=== PATIENT | male | born 1945 | race Caucasian/White ===

== ENCOUNTER → 2019-01-01 12:27 | Outpatient (CLI) | payer MEDICARE, OTHER, SELFPAY ==
[2019-01-01 13:06] LABS: Add Manual Diff / Slide Review NO; Basophils Absolute Auto 0 /uL (0-100); Basophils Percent Auto 0.5 % (0-2); Eosinophils Absolute Auto 100 /uL (0-450); Eosinophils Percent Auto 1.4 % (2-4); Hematocrit 42.3 % (41-53); Hemoglobin 14.5 g/dL (13.5-17.5); Lymphocytes Absolute Auto 1300 /uL (1100-4500); Lymphocytes Percent Auto 29.7 % (25-40); Mean Corpuscular HGB Conc 34.3 % (30-36); Mean Corpuscular Hemoglobin 30.1 PG (26-34); Mean Corpuscular Volume 87.8 fL (80-100); Monocytes Absolute Auto 300 /uL (0-900); Neutrophils Absolute Auto 2800 /uL (1500-7000); Neutrophils Percent Auto 62.4 % (50-75); Platelet Count 187 X10^3/uL (150-400); Red Blood Cell Count 4.82 X10^6/uL (4.5-5.9); Red Cell Distribution Width 14.2 % (11.6-14.8); White Blood Cell Count 4.5 X10^3/uL (4.5-11.0)
[2019-01-01 13:51] LABS: Alanine Aminotransferase 26 IU/L (21-72); Albumin 4.5 g/dL (3.5-5.0); Albumin Globulin Ratio 1.6 (1.0-2.8); Alkaline Phosphatase 49 U/L (38-126); Aspartate Aminotransferase 17 IU/L (17-59); BUN Creatinine Ratio 22.9 (6-22); Bilirubin Total 1.1 mg/dL (0.2-1.3); Blood Urea Nitrogen 16 mg/dL (9-20); Calcium 9.6 mg/dL (8.4-10.2); Carbon Dioxide 27 mmol/L (22-32); Chloride 104 mmol/L (98-107); Cholesterol 194 mg/dL (140-199); Estimated Glomerular Filt Rate > 60.0 mL/min (>60); Globulin 2.8 g/dL (1.7-4.1); Glucose 89 mg/dL (80-110); HDL Cholesterol 69 mg/dL (40-60); HEMOLYSIS < 15 (0-50); LDL Cholesterol Calculated 99 mg/dL (<100); Potassium 4.9 mmol/L (3.4-5.1); Sodium 140 mmol/L (137-145); Total Protein 7.3 g/dL (6.3-8.2); Triglycerides 128 mg/dL (35-150)
[2019-01-01 14:20] LABS: Prostate Specific Antigen Scrn 4.71 ng/mL (0.1-4.0)
== END ==
PROVIDERS: Family Provider Family Medicine; PCP Family Medicine; Visit Provider Family Medicine
DX: Z00.00 Encounter for general adult medical examination without abnormal findings (principal); Z12.5 Encounter for screening for malignant neoplasm of prostate; Z13.6 Encounter for screening for cardiovascular disorders
CPT/HCPCS: 36415; 80053; 80061; 84443; 85025; G0103

== ENCOUNTER → 2019-01-07 11:05 | Outpatient (CLI) | payer MEDICARE, OTHER, SELFPAY ==
[2019-01-07 19:16] LABS: Hep C Virus Ab w/Reflex Quant NEGATIVE s/c (NEGATIVE)
== END ==
PROVIDERS: PCP Family Medicine; Visit Provider Family Medicine
DX: Z11.59 Encounter for screening for other viral diseases (principal)
CPT/HCPCS: 36415; 86803

== ENCOUNTER → 2021-07-07 09:58 | Outpatient (CLI) | payer MEDICARE, SELFPAY ==
[2021-07-07 10:31] LABS: Add Manual Diff / Slide Review NO; Basophils Absolute Auto 0 /uL (0-100); Basophils Percent Auto 0.6 % (0-2); Eosinophils Absolute Auto 100 /uL (0-450); Eosinophils Percent Auto 2.1 % (2-4); Hematocrit 41.5 % (41-53); Hemoglobin 14.3 g/dL (13.5-17.5); Lymphocytes Absolute Auto 1800 /uL (1100-4500); Lymphocytes Percent Auto 34.1 % (25-40); Mean Corpuscular HGB Conc 34.4 % (30-36); Mean Corpuscular Hemoglobin 29.8 PG (26-34); Mean Corpuscular Volume 86.7 fL (80-100); Monocytes Absolute Auto 400 /uL (0-900); Monocytes Percent Auto 6.8 % (3-14); Neutrophils Absolute Auto 3000 /uL (1500-7000); Neutrophils Percent Auto 56.4 % (50-75); Platelet Count 187 X10^3/uL (150-400); Red Blood Cell Count 4.78 X10^6/uL (4.5-5.9); Red Cell Distribution Width 14.2 % (11.6-14.8); White Blood Cell Count 5.3 X10^3/uL (4.5-11.0)
[2021-07-07 11:26] LABS: Alanine Aminotransferase 15 IU/L (<50); Albumin 4.3 g/dL (3.5-5.0); Albumin Globulin Ratio 1.7 (1.0-2.8); Alkaline Phosphatase 48 U/L (38-126); Aspartate Aminotransferase 18 IU/L (17-59); BUN Creatinine Ratio 19.7 (6-22); Bilirubin Total 1.1 mg/dL (0.2-1.3); Blood Urea Nitrogen 15 mg/dL (9-20); Calcium 9.8 mg/dL (8.4-10.2); Carbon Dioxide 25 mmol/L (22-32); Chloride 107 mmol/L (98-107); Cholesterol 215 mg/dL (140-199); Estimated Glomerular Filt Rate > 60.0 mL/min (>60); Globulin 2.5 g/dL (1.7-4.1); Glucose 98 mg/dL (80-110); HDL Cholesterol 72 mg/dL (40-60); HEMOLYSIS < 15 (0-50); LDL Cholesterol Calculated 125 mg/dL (<100); Potassium 4.5 mmol/L (3.4-5.1); Sodium 140 mmol/L (137-145); Total Protein 6.8 g/dL (6.3-8.2); Triglycerides 91 mg/dL (35-150)
[2021-07-07 11:56] LABS: TSH w/ Reflex to FT4 2.22 uIU/mL (0.47-4.68)
== END ==
PROVIDERS: PCP Family Medicine; Referring Provider Family Medicine; Visit Provider Family Medicine
DX: Z00.00 Encounter for general adult medical examination without abnormal findings (principal); Z13.220 Encounter for screening for lipoid disorders; Z13.6 Encounter for screening for cardiovascular disorders; Z12.5 Encounter for screening for malignant neoplasm of prostate
CPT/HCPCS: 36415; 80053; 80061; 84443; 85025; G0103

== ENCOUNTER → 2023-01-15 10:52 | Outpatient (CLI) | payer MEDICARE, SELFPAY ==
[2023-01-15 12:24] LABS: Add Manual Diff / Slide Review NO; Basophils Absolute Auto 0 /uL (0-100); Basophils Percent Auto 0.7 % (0-2); Eosinophils Absolute Auto 100 /uL (0-450); Eosinophils Percent Auto 1.8 % (2-4); Hematocrit 42.2 % (41-53); Hemoglobin 14.6 g/dL (13.5-17.5); Lymphocytes Absolute Auto 1800 /uL (1100-4500); Mean Corpuscular HGB Conc 34.6 % (30-36); Mean Corpuscular Volume 86.6 fL (80-100); Monocytes Absolute Auto 300 /uL (0-900); Monocytes Percent Auto 6.7 % (3-14); Neutrophils Absolute Auto 2800 /uL (1500-7000); Neutrophils Percent Auto 55.8 % (50-75); Platelet Count 193 X10^3/uL (150-400); Red Blood Cell Count 4.87 X10^6/uL (4.5-5.9); White Blood Cell Count 5.1 X10^3/uL (4.5-11.0)
[2023-01-15 13:03] LABS: Alanine Aminotransferase 20 IU/L (<50); Albumin 4.4 g/dL (3.5-5.0); Albumin Globulin Ratio 1.7 (1.0-2.8); Alkaline Phosphatase 58 U/L (38-126); Aspartate Aminotransferase 21 IU/L (17-59); BUN Creatinine Ratio 19.2 (6-22); Bilirubin Total 1.1 mg/dL (0.2-1.3); Blood Urea Nitrogen 15 mg/dL (9-20); Carbon Dioxide 25 mmol/L (22-32); Chloride 100 mmol/L (98-107); Cholesterol 205 mg/dL (140-199); Estimated Glomerular Filt Rate > 60 mL/min (>60); Globulin 2.6 g/dL (1.7-4.1); Glucose 86 mg/dL (80-110); HDL Cholesterol 70 mg/dL (40-60); HEMOLYSIS < 15 (0-50); LDL Cholesterol Calculated 117 mg/dL (<100); Potassium 4.5 mmol/L (3.4-5.1); Sodium 137 mmol/L (137-145); Triglycerides 90 mg/dL (35-150)
[2023-01-15 13:34] LABS: Prostate Specific Antigen Scrn 5.87 ng/mL (0.1-4.0)
[2023-01-15 13:41] LABS: TSH w/ Reflex to FT4 2.81 uIU/mL (0.47-4.68)
== END ==
PROVIDERS: PCP Family Medicine; Referring Provider Family Medicine; Visit Provider Family Medicine
DX: R97.20 Elevated prostate specific antigen [PSA] (principal); Z13.6 Encounter for screening for cardiovascular disorders; Z12.5 Encounter for screening for malignant neoplasm of prostate; Z13.220 Encounter for screening for lipoid disorders
CPT/HCPCS: 36415; 80053; 80061; 84443; 85025; G0103

== ENCOUNTER → 2023-02-14 12:20 | Outpatient (CLI) | payer MEDICARE, SELFPAY ==
--- NOTE | 2023-02-14 12:21 | DI.ECHO.S_ITS ---
[facility] +---------+ : : [address] : : : : [id number] : : : : Phone: [phone]+ Echocardiogram Report + + :Name: WU RUIZ Study Date: 02/14/2023 Height: 72 in : :[facility] ReadingLocation: Weight: 195 lb : : Gender: Male BSA: 2.1 m2 : :: 1945 Age: 77 yrs BP: 115/80 mmHg: :Reason For Study: TACHYCARDIA : :Ordering Physician: MAGEN, : :CHASITY Performed By: NITO FAY : :Referring: CHASITY US : + + Interpretation Summary The left ventricle is normal in size. Left ventricular systolic function is normal. The ejection fraction is estimated to be 50-55%. There are no obvious focal wall motion abnormalities noted but poor endocardial definition reduces the sensitivity for the detection of such. Probable normal LV filling pressures. The right ventricle is normal size. Right ventricular systolic function is mildly reduced. Right ventricular systolic pressure is at least 23 mmHg plus right atrial pressure. The left atrium is severely dilated. There is mild mitral regurgitation. There is no other significant valvular heart disease. The aortic root is normal size. Procedure: A two-dimensional transthoracic echocardiogram with color flow and Doppler was performed. The study quality was technically adequate. There is no prior echocardiogram noted for this patient. The patient was in sinus rhythm with heart rates between 46-119 bpm during the exam. Left Ventricle: The left ventricle is normal in size. There is normal left ventricular wall thickness. Left ventricular systolic function is normal. The ejection fraction is estimated to be 50-55%. There are no obvious focal wall motion abnormalities noted but poor endocardial definition reduces the sensitivity for the detection of such. Probable normal LV filling pressures. Right Ventricle: The right ventricle is normal size. Right ventricular systolic function is mildly reduced. Atria: The left atrium is severely dilated. The right atrium grossly appears normal in size. There is no Doppler evidence for an interatrial shunt. Mitral Valve: The mitral valve is normal in structure and function. There is mild mitral regurgitation. Aortic Valve: The aortic valve opens well. The aortic valve is trileaflet. There is no aortic valve stenosis. There is trace aortic regurgitation. Tricuspid Valve: The tricuspid valve is normal in structure and function. There is mild tricuspid regurgitation. Right ventricular systolic pressure is at least 23 mmHg plus right atrial pressure. Pulmonic Valve: The pulmonic valve is normal in structure and function. There is trace pulmonic regurgitation. There is no other significant valvular heart disease. Great Vessels: The aortic root is normal size. The ascending aorta is at the upper limits of normal in size. The inferior vena cava was not visualized. Pericardium/ Pleura There is no pericardial effusion. There is no pleural effusion. MMode/2D Measurements & Calculations LVIDd: 4.8 cm LVOT diam: 2.0 cm LVIDs: 3.4 cm Ao root diam: 3.6 cm FS: 29.2 % asc Aorta Diam: 4.0 cm IVSd: 0.90 cm LVPWd: 1.0 cm LV esposito. diameter/BSA (cm/m^2): 2.3 LV sys. diameter/BSA (cm/m^2): 1.6 LA A2 area: 25.9 cm2 RA long axis: 6.1 cm LA A4 area: 30.8 cm2 LA length (vol): 6.0 cm LA vol: 113.0 ml LA vol index: 53.6 ml/m2 LVLs ap4: 7.8 cm LVLd ap2: 8.2 cm LVLs ap2: 6.8 cm TAPSE_phl: 1.4 cm Doppler Measurements & Calculations Ao V2 max: 122.0 cm/sec LVOT Max Amador: 78.3 cm/sec Ao V2 mean: 101.0 cm/sec LV V1 max P.5 mmHg Ao max P.0 mmHg LV V1 VTI: 13.9 cm Ao mean P.0 mmHg ZUHAIR(I,D): 2.1 cm2 Ao V2 VTI: 20.4 cm ZUHAIR(V,D): 2.0 cm2 sev ratio: 0.68 ZUHAIR indexed to BSA (cm^2/m^2): 1.0 MV E max amador: 75.4 cm/sec TR max amador: 239.0 cm/sec Med Peak E' Amador: 6.8 cm/sec TR max P.8 mmHg E/E' med: 11.1 PA V2 max: 73.2 cm/sec Lat Peak E' Amador: 11.8 cm/sec PA V2 mean: 53.8 cm/sec E/E' lat: 6.4 PA mean P.0 mmHg E/e' average: 8.8 PA pr(Accel): 39.4 mmHg MV dec time: 0.19 sec SV(LVOT): 43.7 ml AV VR_phl: 0.64 ZUHAIR(VTI)/BSA_phl: 1.0 MV P1/2t-pr_phl: 56.0 msec Reading Physician:03:07 PM
== END ==
PROVIDERS: PCP Family Medicine; Referring Provider Family Medicine; Visit Provider Family Medicine
DX: I47.20 Ventricular tachycardia, unspecified (principal); I08.1 Rheumatic disorders of both mitral and tricuspid valves
CPT/HCPCS: 93306

== ENCOUNTER → 2023-02-18 13:36 | Outpatient (CLI) | payer MEDICARE, SELFPAY | PROVIDERS: PCP Family Medicine; Referring Provider Family Medicine; Visit Provider Family Medicine | DX: I47.20 Ventricular tachycardia, unspecified (principal) | CPT/HCPCS: 93246 ==

== ENCOUNTER → 2023-05-15 16:40 | Outpatient (CLI) | payer MEDICARE, SELFPAY ==
--- NOTE | 2023-05-15 16:43 | DI.MRI.S_ITS ---
PROCEDURE: MR PELVIC PROSTATE PROTOCOL INDICATIONS: Elevated and rising PSA with family hx prostate CA TECHNIQUE: Coronal HASTE, axial T1 FSE with fat saturation, 3-plane nonbreath-hold T2 FSE. After the administration of contrast, dynamic axial, delayed axial and coronal VIBE or 2-D FLASH with fat saturation through the pelvis. Optional diffusion weighted imaging and ADC may be performed. COMPARISON: None. FINDINGS: Image quality: Diffusion weighted and dynamic contrast enhanced images are diagnostic. Prostate: Gland size is 5.8 x 4.3 x 5.9 cm; ellipsoid gland volume is 77 mL. Mild linear and wedge-shaped ADC hypointensities present within the prostate peripheral zone with indistinct T2 correlates (PI-RADS 2 findings). Enlargement of the prostate transitional zone with findings typical of benign prostatic hyperplasia. No large lesion strongly stands out against background parenchymal changes of BPH on T2 weighted images (PI-RADS 2 findings). Genitourinary system: Bladder wall thickness is normal. Distal ureters are non distended. Bowel and peritoneum: No pathologic free pelvic fluid. Inferior colon and small bowel loops are normal in caliber. Colonic diverticulosis present without MR evidence of acute diverticulitis. Nodes and vessels: No pelvic or inguinal adenopathy by size criteria. Iliac vessels are normal in caliber. Bones: Marrow demonstrates normal overall signal, without lesions to suggest metastases. IMPRESSION: 1. No large or highly suspicious focal prostate lesion to direct biopsy. There is enlargement of the prostate transitional zone with findings typical of benign prostatic hyperplasia, with prostate volume estimated at 77 cc. 2. No suspicious lymph nodes identified in the imaged pelvis. Dictated by: Modesto Lopez M.D. on 05/16/2023 at 11:21 Approved by: Modesto Lopez M.D. on 05/16/2023 at 11:37
== END ==
PROVIDERS: PCP Family Medicine; Referring Provider Urology; Visit Provider Urology
DX: K57.90 Diverticulosis of intestine, part unspecified, without perforation or abscess without bleeding (principal); R97.20 Elevated prostate specific antigen [PSA]; Z80.42 Family history of malignant neoplasm of prostate
CPT/HCPCS: 72197; A9579

== ENCOUNTER → 2023-12-05 13:41 | Outpatient (CLI) | payer MEDICARE, SELFPAY ==
[2023-12-06 14:51] LABS: PSA, Total 4.4 ng/mL (0.0-4.0)
== END ==
PROVIDERS: PCP Family Medicine; Referring Provider Urology; Visit Provider Urology
DX: R97.20 Elevated prostate specific antigen [PSA] (principal); Z80.42 Family history of malignant neoplasm of prostate
CPT/HCPCS: 36415; 84153; 84154

== ENCOUNTER → 2023-12-12 09:20 | Outpatient (CLI) | payer MEDICARE, SELFPAY | PROVIDERS: PCP Family Medicine; Visit Provider Urology | DX: N32.0 Bladder-neck obstruction (principal); R97.20 Elevated prostate specific antigen [PSA]; R39.14 Feeling of incomplete bladder emptying; R39.9 Unspecified symptoms and signs involving the genitourinary system; R33.8 Other retention of urine; Z80.42 Family history of malignant neoplasm of prostate | CPT/HCPCS: 51798; 87086; 99214 ==

== ENCOUNTER 2024-01-03 11:44 | Emergency (ER) | payer MEDICARE, SELFPAY ==
[2024-01-03] VITALS (7 sets, daily range): BP systolic 140–154; BP diastolic 64–91; PULSE 56–64; RESP 16–18; TEMP 35.7; O2SAT 97–99; BMI 25.7
--- NOTE | 2024-01-03 12:08 | DI.CT.S_ITS ---
PROCEDURE: CT HEAD/BRAIN WO CON INDICATIONS: unwitnessed syncopal episode with lac on forehead TECHNIQUE: Noncontrast 4.5 mm thick angled axial sections acquired from the foramen magnum to the vertex, with coronal and sagittal reformats. For radiation dose reduction, the following was used: automated exposure control, adjustment of mA and/or kV according to patient size. COMPARISON: None. FINDINGS: Image quality: Diagnostic. CSF spaces: Basal cisterns are patent. No extra-axial fluid collections. The ventricles are symmetric in size and shape. Brain: No intracranial bleeds or masses. There is cerebral volume loss for age, with resultant ventricular and sulcal prominence. There are periventricular and deep white matter chronic small vessel ischemic changes. There is intracranial internal carotid artery atherosclerosis. Skull and face: Calvarium and visualized facial bones appear intact, without suspicious lesions. Sinuses: Visualized sinuses and mastoids are clear. IMPRESSION: 1. No acute intracranial process. 2. Moderate atrophy and chronic microvascular ischemic changes. Dictated by: Michaela Pizarro M.D. on 01/03/2024 at 12:28 Approved by: Michaela Pizarro M.D. on 01/03/2024 at 12:28
[2024-01-03] MEDS: SODIUM CHLORIDE IRRIG SOLUTION 1,000 ML 500 ML IRR (12:16)
[2024-01-03] MEDS: LIDOCAINE 1% W/EPI 1 ML SUBCUT (12:16)
--- NOTE | 2024-01-03 13:03 | ED_ITS ---
HPI - Syncope General Chief Complaint: Syncope Stated Complaint: passed out & hit head, laceration on forehead Time Seen by Provider: 01/03/24 12:13 Source: patient and EMS Mode of arrival: Ambulatory History of Present Illness HPI narrative: Patient is sent here from Urology office for injury to the forehead. Patient states he has history of passing out during Ewing catheter changes. This happens from time to time but not every time. Patient states they Ewing catheter was changed. He felt dizzy while in a seated position and fell forward. Tetanus is up-to-date according to the patient. Patient in no distress. This is happen in other clinical settings other than urology office, including dentist office. Related Data Previous Rx's Medication Instructions Recorded tadalafil 5 mg tablet See Rx Instructions .Route 01/31/23 .COMPLEX #90 tabs Allergies Allergy/AdvReac Type Severity Reaction Status Date / Time No Known Drug Allergies Allergy Verified 01/03/24 11:51 Review of Systems Review of Systems Narrative: GENERAL: negative chills, fatigue, malaise, fever, sweats. HEENT: negative sinus pain, ear pain, sore throat RESPIRATORY: negative dyspnea, cough CARDIOVASCULAR: negative chest pain, palpitations GASTROINTESTINAL: negative nausea, vomiting, abdominal pain : negative dysuria, frequency, hematuria MUSCULOSKELETAL: negative muscle or bony pain SKIN: negative rash, skin lesions, positive skin injury NEUROLOGIC: negative weakness, numbness, positive syncope ROS Unobtainable: All systems reviewed & are unremarkable except as noted in HPI and below Patient History Medical History Forehead laceration Syncope and collapse Acute urinary retention Feeling of incomplete bladder emptying Bladder outlet obstruction Lower urinary tract symptoms Family history of prostate cancer Rising PSA level High prostate specific antigen (PSA) History of anemia Surgical History History of back surgery Status post laminectomy Social History marital status: number of children: 1 occupational status: other Smoking Status: Never smoker alcohol intake: current substance use type: does not use caffeine: Yes Type(s) of exercise: walking frequency: 3-4 times per week duration: > 90 minutes/day Smoking Status: Never smoker alcohol intake frequency: 0-2 drinks per day Substance Use Type: does not use Exam Narrative Exam Narrative: GENERAL: in no distress, not toxic not dyspneic HEAD: Normocephalic. 3 cm horizontal laceration right of midline on the forehead above the eyebrow. Base visualized. Bloodless field. No bone or muscle injury seen. No foreign body. Bleeding is controlled. EYES: Pupils equal round ENT: Mucous membranes moist. NECK: Trachea midline. CARDIOVASCULAR: Regular rate and rhythm RESPIRATORY: Clear to auscultation. Breath sounds equal bilaterally. No wheezes, rales, or rhonchi. GASTROINTESTINAL: Abdomen soft, non-tender EXTREMITIES: No gross deformities. BACK: No flank tenderness. NEURO: AOx4. SKIN: Warm and dry PSYCH: Not anxious, is cooperative Initial Vital Signs Initial Vital Signs: Vital Signs Temperature 96.2 F L 01/03/24 11:49 Pulse Rate 56 L 01/03/24 11:49 Respiratory Rate 16 01/03/24 11:49 Blood Pressure 154/77 H 01/03/24 11:49 Pulse Oximetry 97 01/03/24 11:49 Oxygen Delivery Method Room Air 01/03/24 11:49 Course Orders Ordered: Discontinued Medications Bacitracin (Bacitracin Oint 0.9 Gm Pckt) 1 applic TOP NOW ONE Stop: 01/03/24 13:32 Last Admin: 01/03/24 13:45 Dose: 1 applic Documented By: DEEPALI Lidocaine/Epinephrine (Lidocaine 1% W/Epi) 1 ml SUBCUT NOW ONE Stop: 01/03/24 12:12 Last Admin: 01/03/24 12:16 Dose: 1 ml Documented By: RB Sodium Chloride (Sodium Chloride Irrig Solution 1,000 Ml) 500 ml IRR NOW ONE Stop: 01/03/24 12:10 Last Admin: 01/03/24 12:16 Dose: 500 ml Documented By: RB Vital Signs Vital signs: Vital Signs - 8 hr 01/03/24 11:49 01/03/24 11:56 01/03/24 11:56 Temperature 96.2 F L Pulse Rate 56 L 62 Respiratory Rate 16 Blood Pressure 154/77 H 147/91 H Pulse Oximetry 97 97 Oxygen Delivery Method Room Air 01/03/24 12:00 01/03/24 12:00 01/03/24 12:30 Temperature Pulse Rate 59 L 59 L Respiratory Rate Blood Pressure 140/85 Pulse Oximetry 97 99 Oxygen Delivery Method MDM - Syncope Imaging Data CT scan - head: Radiologist's Impression: [address] [address] [address] Scan Report Signed Patient: Chaim Guido MR#: [id number] : 1945 Acct:[id number] Age/Sex: 78 / M Date of Service: 01/03/24 Loc: ED Accession Number: [id number] Procedure: CT head/brain wo con Ordering Provider: Tera Barney MD PROCEDURE: CT HEAD/BRAIN WO CON INDICATIONS: unwitnessed syncopal episode with lac on forehead TECHNIQUE: Noncontrast 4.5 mm thick angled axial sections acquired from the foramen magnum to the vertex, with coronal and sagittal reformats. For radiation dose reduction, the following was used: automated exposure control, adjustment of mA and/or kV according to patient size. COMPARISON: None. FINDINGS: Image quality: Diagnostic. CSF spaces: Basal cisterns are patent. No extra-axial fluid collections. The ventricles are symmetric in size and shape. Brain: No intracranial bleeds or masses. There is cerebral volume loss for age, with resultant ventricular and sulcal prominence. There are periventricular and deep white matter chronic small vessel ischemic changes. There is intracranial internal carotid artery atherosclerosis. Skull and face: Calvarium and visualized facial bones appear intact, without suspicious lesions. Sinuses: Visualized sinuses and mastoids are clear. IMPRESSION: 1. No acute intracranial process. 2. Moderate atrophy and chronic microvascular ischemic changes. Dictated by: Michaela Pizarro M.D. on 01/03/2024 at 12:28 Approved by: Michaela Pizarro M.D. on 01/03/2024 at 12:28 [facility] Narrative Medical decision making narrative: Patient is sent here from Urology office for injury to the forehead. Patient states he has history of passing out during Ewing catheter changes. This happens from time to time but not every time. Patient states they Ewing catheter was changed. He felt dizzy while in a seated position and fell forward. Tetanus is up-to-date according to the patient. Patient in no distress. This is happen in other clinical settings other than urology office, including dentist office. After history and exam CT head wound care wound closure [facility] CC: Syncope/skin laceration Complicating co-morbidities: History of syncope Data collected from: Patient Medical records reviewed: No recent visit for this complaint Differential considered: Includes but not limited to vasovagal syncope/skin laceration/seizure/arrhythmia Exam documented above, pertinent findings include: Forehead laceration Imaging studies independently reviewed: CT head no acute finding Consultations: None indicated Treatments: Skin care and closure Re-evaluations: Reviewed exam and imaging and treatment plans with patient and patient agrees. Patient tolerated wound closure very well. Return precautions reviewed. Wound care instructions provided. He desires discharge home Discussion: Appropriate for discharge home. Patient has history of vasovagal syncope. This is not new. No blood work or EKG indicated. Return precautions reviewed. Exam is reassuring as well as CT scan imaging. Not toxic at discharge. He desires discharge home Diagnosis: Syncope/skin laceration Discharge Plan Departure Patient Disposition: Home Clinical Impression: Vasovagal syncope Forehead laceration Qualifiers: Encounter type: initial encounter Qualified Code(s): S01.81XA - Laceration without foreign body of other part of head, initial encounter Instructions: DI for Syncope in Adults (Fainting), DI for Laceration Repair -- Simple Activity Restrictions/Additional Instructions: Please clean your skin injury daily with warm soap and water and apply a thin layer of topical antibiotic. You may shower. You may get the wound wet but no submersion of under water/swimming/tub bath. See family doctor or return here in 10 days to have 7 stitches removed. Your exam and CT scan imaging today are reassuring. Return if worse if any questions or concerns Prescriptions: No Action tadalafil 5 mg tablet See Rx Instructions .ROUTE .COMPLEX Qty: 90 3RF Dose Instruction: TAKE ONE TABLET BY MOUTH ONE TIME DAILY FOR 90 DAYS Rx Instructions: TAKE ONE TABLET BY MOUTH ONE TIME DAILY FOR 90 DAYS Referrals: Maikol Reddy MD [Primary Care Provider] - Stand Alone Forms: Patient Portal/API
[2024-01-03] MEDS: BACITRACIN OINT 0.9 GM PCKT 1 APPLIC TOP (13:45)
== END 2024-01-03 13:46 | disposition home or self-care (01) ==
PROVIDERS: Emergency Provider Emergency Medicine; PCP Family Medicine
DX: R55 Syncope and collapse (principal); S01.81XA Laceration without foreign body of other part of head, initial encounter; W18.30XA Fall on same level, unspecified, initial encounter; Y92.531 Health care provider office as the place of occurrence of the external cause; R39.14 Feeling of incomplete bladder emptying; R39.9 Unspecified symptoms and signs involving the genitourinary system; R33.8 Other retention of urine; N32.0 Bladder-neck obstruction; R97.20 Elevated prostate specific antigen [PSA]; Z80.42 Family history of malignant neoplasm of prostate
CPT/HCPCS: 12013; 51798; 70450; 81002; 87077; 87086; 87147; 99214; 99283

== ENCOUNTER → 2024-01-03 | Outpatient (CLI) | payer MEDICARE, SELFPAY | PROVIDERS: PCP Family Medicine; Visit Provider Urology | DX: R33.8 Other retention of urine (principal) | CPT/HCPCS: 87086 ==

== ENCOUNTER 2024-01-13 09:23 | Emergency (ER) | payer MEDICARE, SELFPAY ==
[2024-01-13 09:26] VITALS: BP 155/85; PULSE 70; RESP 16; TEMP 36.2; O2SAT 97; BMI 26.4
--- NOTE | 2024-01-13 09:28 | ED.GENADULT ---
HPI - General Adult General Stated complaint: needs stitches removed Time Seen by Provider: 01/13/24 09:27 Related Data Previous Rx's Medication Instructions Recorded tadalafil 5 mg tablet See Rx Instructions .Route 01/31/23 .COMPLEX #90 tabs levofloxacin 500 mg tablet 500 mg PO DAILY #3 tabs 01/07/24 Allergies Allergy/AdvReac Type Severity Reaction Status Date / Time No Known Drug Allergies Allergy Verified 01/03/24 11:51 Patient History Medical History Forehead laceration Syncope and collapse Acute urinary retention Feeling of incomplete bladder emptying Bladder outlet obstruction Lower urinary tract symptoms Family history of prostate cancer Rising PSA level High prostate specific antigen (PSA) History of anemia Surgical History History of back surgery Status post laminectomy Social History marital status: number of children: 1 occupational status: other Smoking Status: Never smoker alcohol intake: current (1-3 A WEEK ) substance use type: does not use caffeine: Yes Type(s) of exercise: walking frequency: 3-4 times per week duration: > 90 minutes/day Smoking Status: Never smoker alcohol intake frequency: 0-2 drinks per day Substance Use Type: does not use Discharge Plan Departure Prescriptions: No Action tadalafil 5 mg tablet See Rx Instructions .ROUTE .COMPLEX Qty: 90 3RF Dose Instruction: TAKE ONE TABLET BY MOUTH ONE TIME DAILY FOR 90 DAYS Rx Instructions: TAKE ONE TABLET BY MOUTH ONE TIME DAILY FOR 90 DAYS levofloxacin 500 mg tablet 500 mg PO DAILY Qty: 3 0RF Rx Instructions: Take one day before, day of, and day following procedure. Referrals: Maikol Reddy MD [Primary Care Provider] -
--- NOTE | 2024-01-13 09:57 | ED.RECABL ---
HPI - Recheck/Abnormal Lab/Rx General Chief Complaint: Recheck/Abnormal Lab/Rx Stated Complaint: needs stitches removed Time Seen by Provider: 01/13/24 09:27 Source: patient Mode of arrival: Ambulatory Related Data Previous Rx's Medication Instructions Recorded tadalafil 5 mg tablet See Rx Instructions .Route 01/31/23 .COMPLEX #90 tabs levofloxacin 500 mg tablet 500 mg PO DAILY #3 tabs 01/07/24 Allergies Allergy/AdvReac Type Severity Reaction Status Date / Time No Known Drug Allergies Allergy Verified 01/03/24 11:51 Patient History Medical History Forehead laceration Syncope and collapse Acute urinary retention Feeling of incomplete bladder emptying Bladder outlet obstruction Lower urinary tract symptoms Family history of prostate cancer Rising PSA level High prostate specific antigen (PSA) History of anemia Surgical History History of back surgery Status post laminectomy Social History marital status: number of children: 1 occupational status: other Smoking Status: Never smoker alcohol intake: current (1-3 A WEEK ) substance use type: does not use caffeine: Yes Type(s) of exercise: walking frequency: 3-4 times per week duration: > 90 minutes/day Smoking Status: Never smoker alcohol intake frequency: 0-2 drinks per day Substance Use Type: does not use Exam Initial Vital Signs Initial Vital Signs: Vital Signs Temperature 97.2 F L 01/13/24 09:26 Pulse Rate 70 01/13/24 09:26 Respiratory Rate 16 01/13/24 09:26 Blood Pressure 155/85 H 01/13/24 09:26 Pulse Oximetry 97 01/13/24 09:26 Oxygen Delivery Method Room Air 01/13/24 09:26 Course Vital Signs Vital signs: Vital Signs - 8 hr 01/13/24 09:26 Temperature 97.2 F L Pulse Rate 70 Respiratory Rate 16 Blood Pressure 155/85 H Pulse Oximetry 97 Oxygen Delivery Method Room Air Discharge Plan Departure Patient Disposition: Home Clinical Impression: Encounter for removal of sutures Instructions: DI for Suture Removal Prescriptions: No Action tadalafil 5 mg tablet See Rx Instructions .ROUTE .COMPLEX Qty: 90 3RF Dose Instruction: TAKE ONE TABLET BY MOUTH ONE TIME DAILY FOR 90 DAYS Rx Instructions: TAKE ONE TABLET BY MOUTH ONE TIME DAILY FOR 90 DAYS levofloxacin 500 mg tablet 500 mg PO DAILY Qty: 3 0RF Rx Instructions: Take one day before, day of, and day following procedure. Referrals: Maikol Reddy MD [Primary Care Provider] - Stand Alone Forms: Patient Portal/API
--- NOTE | 2024-01-13 09:59 | PC.NURSE ---
Suture removal performed by this EDRN at this time, per order from Dr. conklin.
== END 2024-01-13 10:02 | disposition home or self-care (01) ==
PROVIDERS: Emergency Provider Emergency Medicine; PCP Family Medicine
DX: Z48.02 Encounter for removal of sutures (principal)
CPT/HCPCS: 99281

== ENCOUNTER → 2024-03-11 11:31 | Outpatient (CLI) | payer MEDICARE, SELFPAY | PROVIDERS: PCP Family Medicine; Visit Provider Urology | DX: N40.1 Benign prostatic hyperplasia with lower urinary tract symptoms (principal); Z87.898 Personal history of other specified conditions | CPT/HCPCS: 87086 ==

== ENCOUNTER 2024-03-17 06:09 | Day surgery (SDC) | payer MEDICARE, SELFPAY ==
[2024-03-10 14:53] VITALS: BMI 26.4
[2024-03-17] VITALS (9 sets, daily range): BP systolic 99–146; BP diastolic 45–87; PULSE 59–75; RESP 13–20; TEMP 36–36.5; O2SAT 92–99; BMI 25.7
--- NOTE | 2024-03-17 | PATH_ITS ---
[facility] Accession Number: [id number] No. of containers..01 Tissue . 01 Material submitted: . prostate - PROSTATE CHIPS . 01 Diagnosis: A. PROSTATE, CHIPS: Benign prostatic stroma with benign epithelium. . . COMMENT: Mild acute and chronic inflammation is seen. MRV 03/23/2024 1423 Local . 01 Electronically signed: . Nellie Bajwa MD, Pathologist NPI- [id number] . 01 Gross description: . Received in formalin with two identifiers and prostate chip, are multiple starr, rubbery, soft tissue fragments admixed with hemorrhagic material weighing 4 grams, and aggregating to 4.2 x 3.7 x 0.7 cm. No distinct lesions are identified, and the specimen is submitted entirely in cassettes A1-A5. ([id number]) /MRV 03/19/2024 1749 Local . 01 Pathologist provided ICD-10: N42.9 . 01 CPT . 900710 Specimen Comment: A courtesy copy of this report has been sent to [phone] Performed at: 01 [facility] [address] [place] [address], [place], [place] [id number] MD Bernardo Greenwood MD Phone: [phone]
[2024-03-17] MEDS: LACTATED RINGERS 1,000 ML 42 ML IV ×3 (07:08→10:04)
--- NOTE | 2024-03-17 07:32 | PM.PREOP ---
Pre-operative Note COVID-19 COVID-19 status: Not tested Interval Note History & Physical reviewed/Exam performed by Physician: Yes Changes to H&P: No
[2024-03-17] MEDS: CEFAZOLIN 2 GM/100 ML PREMIX 100 ML IV (07:55)
--- NOTE | 2024-03-17 08:20 | SUR.OPER ---
Lithotomy on padded OR bed, head on pillow, arms secured on padded arm boards at <90 degrees abduction. Legs secured in padded yellow fins stirrups.
--- NOTE | 2024-03-17 09:52 | PM.OP.1 ---
Procedure & Clinicians Procedure: 1. Aquablation water jet resection of prostate 2. Transrectal ultrasound 3. Transurethral resection of prostate Same procedure as scheduled: Yes Indications: This 78-year-old male had a history of retention and profound bladder outlet obstruction underwent workup and was found to have a prostate that was 67 g excluding a median lobe. He had trilobar obstruction with a median lobe. He had a Q max of 4.5 and an international prostate symptom score of 13 with a bothersome index of 6. Who presents at this time for Aquablation to treat his bladder outlet obstruction, benign prostatic hyperplasia with lower urinary tract symptoms. Surgeon: Tera Montesinos Click Yes if Unassisted: Yes Anesthesia Type: General Operative Notes Findings: At cystoscopy: Urethra and urethral meatus were normal with normal mucosa. Sphincter as well coapted prostate exhibited again marked obstructive character elongation with a median lobe. At the end of the procedure after all prostate chips were evacuated hemostasis was good there was an excellent channel and the ureteral orifices were intact and unaffected. Total Aquablation time for 2 passes was 8 minutes. Hemostasis appeared to be good. A 24 [place] hematuria catheter was left in place with 45 cc in the balloon. No other abnormalities or significant findings were noted. Again the prostate appeared well resected with an excellent channel. Closure Type: not applicable Specimen(s): other (Prostate chips) Applied: catheter (24 [place] three-way hematuria catheter with 45 cc in the balloon) Estimated Blood Loss (mL): 50 Blood products transfused: none Procedure in detail: Procedure in detail: After informed consent was obtained, the patient was identified and brought to the operating room where he was placed in a supine position on the table. Once there anesthesia was induced and maintained. Ensuring an adequate level of anesthesia the patient was transition to the lithotomy position. Once there he was prepped and prepared for transrectal and Transurethral procedure. Ensuring an adequate level of anesthesia after prepping time-out and ensuring antibiotics were given 60 cc of ultrasound gel were instilled within the rectum and the ultrasound probe which was mounted to the truss stepper which is attached to the articulating arm was inserted into the rectum and the prostate visualized. The ultrasound probe was then aligned and that the prostate was centered using both transverse and longitudinal views. With this accomplished the patient was then draped in a sterile fashion and prepared for the remainder of the procedure. At this point the 24 [place] aqua beam handpiece was inserted through the urethra prostate and bladder under direct vision. Cystoscopy was then performed and the prostate is expect is inspected. At this point using direct visualization and the ultrasound the sphincter, verumontanum, bladder neck and median lobe were identified. The aqua beam handpiece was then secured to the handpiece articulating arm. The alignment of the aqua beam handpiece and truss probe were confirmed to be parallel and colinear. Confirmation was made that the aqua beam nozzle was centered and anterior to the median lobe. The cystoscope was then retracted to visualize the verumontanum and external sphincter this was again verified on ultrasound. There was some difficulty with visualization and a finger sweep was performed which restored visualization of the distal aspect of the prostate and cystoscope tip. At this point the cystoscope tip was patient just proximal to the external sphincter. The alignment of the truss probe and Aquablation handpiece was once again confirmed. And slight upward compression was applied with a truss probe. Horizontal alignment of the handpiece water jet was performed and confirmed. The Aquablation treatment zones were then planned utilizing real-time ultrasound to visualize the landmarks and outlined of the prostate. The depth and radial angles were confirmed and defined and transverse view in the widest part of the prostate in the sagittal view the aqua beam nozzle was identified in his position registered with the software. The level of the verumontanum and length of resection were then marked. The depth of resection of the median lobe bladder neck mid prostate and verumontanum were confirmed with the software. The with all parameters and margins of resection satisfactorily confirmed the treatment plan was confirmed and the Aquablation treatment was then started following the contour and limits that were defined. After the 1st pass a 2nd pass was done again from the median lobe to the verumontanum. The depth was adjusted upward as per standard protocol. The 2nd pass was performed after confirmation of the margins of resection. With this done the aqua beam handpiece was removed under direct vision after advancing the cystoscope all the way to the tip of the nodule. At this point the resectoscope was inserted and the bladder and prostate irrigated of any clot that was present. Then starting at the 3 o'clock position and working to the 9 o'clock position at the bladder neck the fuzzy resected tissue was resected and points of bleeding controlled. There was a small amount of median lobe which was resected. Anteriorly there were at the bladder neck a couple of sites of bleeding which were controlled. On the patient's right side there was some residual tissue resected at the level of the verumontanum. There was some bleeding anteriorly at the level of verumontanum likely from the vibration of the scope these were controlled with electrocautery. At this point the bladder was once again irrigated and all prostate chips removed. The bladder was drained filled drained filled and a each cycle any point of bleeding was controlled with the electrocautery. Being satisfied with the hemostasis and a good channel the bladder was left full and the scope was removed. The 24 [place] three-way hematuria catheter was placed with the aid of a cath guide the balloon filled with 14 cc of sterile water and the catheter placed to gravity drainage and continuous bladder irrigation. At this point the patient was awakened having tolerated the procedure well and was transferred to the postanesthesia care unit for recovery. There were no complications Complications: none Post-operative Condition: stable Disposition: PACU Plan for aftercare: Patient will have continuous bladder irrigation and if his urine remains acceptably clear he will be discharged to home if it remains bloody then desired he will come in his an outpatient to potentially be discharged within 23 hours.
[2024-03-17] MEDS: OXYCODONE IR 5 MG TABLET PO (10:04)
[2024-03-17] MEDS: ACETAMINOPHEN 325 MG TABLET 650 MG PO (10:05)
[2024-03-17] MEDS: OXYBUTYNIN 5 MG TABLET PO (10:24)
[2024-03-17] MEDS: PHENAZOPYRIDINE 100 MG TABLET 200 MG PO (10:25)
--- NOTE | 2024-03-17 11:24 | SUR.PHASEII ---
Patient evaluated multiple times by Dr. Montesinos. stopped continuous irrigation and discharged patient. Irrigation port plugged. Duarte draining grade IV-V. Water provided to patient and fluids/rest encouraged. Sterile water for irrigation and syringe provided after patient was shown how to irrigate the duarte as needed per instructions. Patient expressed verbal understanding.
== END 2024-03-17 11:27 | disposition home or self-care (01) ==
PROVIDERS: PCP Family Medicine; Referring Provider Urology; Visit Provider Urology
PROC: 0VT08ZZ Resection of Prostate, Via Natural or Artificial Opening Endoscopic (ICD-10-PCS; CPT 52597; principal; 2024-03-17 07:45)
DX: N40.1 Benign prostatic hyperplasia with lower urinary tract symptoms (principal); N13.8 Other obstructive and reflux uropathy
CPT/HCPCS: 0421T; C2596; J0690; J2704; J3010

== ENCOUNTER → 2024-03-19 14:39 | Outpatient (CLI) | payer MEDICARE, SELFPAY | PROVIDERS: PCP Family Medicine; Visit Provider Urology | DX: Z87.898 Personal history of other specified conditions (principal); N40.1 Benign prostatic hyperplasia with lower urinary tract symptoms; J02.9 Acute pharyngitis, unspecified | CPT/HCPCS: 51798; 81002; 87086 ==

== ENCOUNTER → 2024-03-27 08:24 | Outpatient (CLI) | payer MEDICARE, SELFPAY | PROVIDERS: PCP Family Medicine; Visit Provider Urology | DX: N40.1 Benign prostatic hyperplasia with lower urinary tract symptoms (principal) | CPT/HCPCS: 51798; 52000; 81002; 87086 ==

== ENCOUNTER → 2024-04-06 13:08 | Outpatient (CLI) | payer MEDICARE, SELFPAY | PROVIDERS: PCP Family Medicine; Visit Provider Urology | DX: N40.1 Benign prostatic hyperplasia with lower urinary tract symptoms (principal) | CPT/HCPCS: 87086 ==

== ENCOUNTER → 2024-08-04 14:28 | Outpatient (CLI) | payer MEDICARE, SELFPAY ==
[2024-08-04 18:10] LABS: Prostate Specific Antigen 4.74 ng/mL (0.10-4.00)
== END ==
LOC: LAB 14:29
PROVIDERS: PCP Family Medicine; Referring Provider Urology; Visit Provider Urology
DX: R97.20 Elevated prostate specific antigen [PSA] (principal)
CPT/HCPCS: 36415; 84153

== ENCOUNTER → 2025-01-26 09:23 | Outpatient (CLI) | payer MEDICARE, SELFPAY | PROVIDERS: PCP Family Medicine; Referring Provider Urology; Visit Provider Urology | DX: R97.20 Elevated prostate specific antigen [PSA] (principal); Z80.42 Family history of malignant neoplasm of prostate | CPT/HCPCS: 36415; 84153; 84154 ==

== ENCOUNTER → 2025-07-30 12:00 | Outpatient (CLI) | payer MEDICARE, SELFPAY ==
[2025-07-31 06:40] LABS: PSA, Total 6.0 ng/mL (0.0-4.0)
== END ==
PROVIDERS: Family Provider Family Medicine; PCP Family Medicine; Referring Provider Urology; Visit Provider Urology
DX: R97.20 Elevated prostate specific antigen [PSA] (principal); Z80.42 Family history of malignant neoplasm of prostate
CPT/HCPCS: 36415; 84153; 84154

== ENCOUNTER → 2025-08-03 15:07 | Outpatient (CLI) | payer MEDICARE, SELFPAY ==
--- NOTE | 2025-08-03 15:08 | DI.MRI.S_ITS ---
PROCEDURE: MR ANKLE RT WO CON INDICATIONS: INTRACTABLE RIGHT HEEL PAIN TECHNIQUE: Noncontrast sagittal T1 spin echo and T2 fast spin echo with fat saturation, axial proton density fast spin echo and T2 fast spin echo with fat saturation, coronal T1 spin echo and T2 fast spin echo with fat saturation through the ankle/hindfoot. COMPARISON: [facility], CR, XR FOOT 3 VIEWS WEIGHT BEARING BILATERAL, 05/14/2025, 14:09. FINDINGS: Quality: Adequate Extensor tendons: Unremarkable Medial ankle tendons: Posterior tibialis tendon: Intact. Flexor digitorum longus tendon: Intact. Flexor hallucis longus tendon: Intact. Medial ankle ligaments: Deltoid ligament, superficial and deep: Intact Spring ligaments: Intact. Lateral ankle tendons: Peroneus brevis tendon: Intact. Peroneus longus tendon: Intact. Lateral ankle ligaments: Tibiofibular ligaments: Intact Anterior talofibular ligament: Intact. Posterior talofibular ligament: Intact. Calcaneofibular ligament: Intact. Achilles tendon: Intact. Plantar fascia: Partial tear and edema at the proximal attachment of the central cord with associated calcaneal spurring and marrow edema like signal. Sinus tarsi: Unremarkable. Tarsal tunnel: Unremarkable. Cartilage: No focal defect identified. Marginal osteophytes at the tibiotalar, subtalar and mid tarsal joints. Bones: No fracture. Focal subchondral marrow edema like lesion at the medial hilar dome with no visible overlying cartilage defect. Joints: No effusion. Other: None. IMPRESSION: Partial tear plantar fascia and acute plantar fasciitis. Mild osteoarthritis. Dictated by: Urbano Adams M.D. on 08/03/2025 at 17:29 Approved by: Urbano Adams M.D. on 08/03/2025 at 17:32
== END ==
LOC: MRI 15:07
PROVIDERS: Family Provider Family Medicine; PCP Family Medicine; Referring Provider Orthopaedic Surgery Foot and Ankle Surgery; Visit Provider Orthopaedic Surgery Foot and Ankle Surgery
DX: M19.071 Primary osteoarthritis, right ankle and foot (principal); M79.671 Pain in right foot; M72.2 Plantar fascial fibromatosis
CPT/HCPCS: 73721